=== PATIENT | male | born 1995 | race Two or more races ===

== ENCOUNTER 2025-03-15 17:07 | Emergency (ER) | payer MEDICAID, SELFPAY ==
[2025-03-15 17:20] VITALS: BP 144/83; PULSE 109; RESP 20; TEMP 39; O2SAT 95
--- NOTE | 2025-03-15 17:38 | XR_ITS ---
Examination: PA lateral chest 2 views TECHNIQUE: Upright PA and lateral chest 2 views Date and time: March 15, 2025, 1757 hours INDICATIONS: Coughing beginning 3 days ago. FINDINGS: Early pneumonia in the lingular segment left upper lobe Normal heart size Right lung is clear IMPRESSION: Early pneumonia in the lingular segment left upper lobe
--- NOTE | 2025-03-15 17:39 | EDRME_ITS ---
Rapid Medical Screening Exam RME Arrival date/time: 03/15/25 17:07 30-year-old male with no known medical history presents to the emergency room with a chief complaint of fever, right-sided flank pain, abdominal pain, cough x 2 days I have greeted and performed a focused initial assessment of this patient. A com prehensive ED assessment and evaluation of the patient, analysis of all test results, and completion of the medical decision making process will be conducted by additional ED providers. Chief Complaint: General Adult/Misc Complain Time Seen by Provider: 03/15/25 17:20 Vital signs: Vital Signs Temperature 102.2 F H 03/15/25 17:20 Pulse Rate 109 H 03/15/25 17:20 Respiratory Rate 20 03/15/25 17:20 Blood Pressure 144/83 H 03/15/25 17:20 Pulse Oximetry (%) 95 03/15/25 17:20 Oxygen Delivery Method Room Air 03/15/25 17:20 Vital signs reviewed by provider: Yes
--- NOTE | 2025-03-15 17:39 | XR_ITS ---
Examination: CT abdomen and pelvis without contrast. Coronal 3-D reconstructions. Sagittal 2-D reconstructions. Date and time of exam:March 15, 2025, 1754 hours INDICATIONS: Fever and left-sided flank pain and generalized abdominal pain beginning one week ago CTDI: vol (mGy): 8.57. DLP: (mGycm): 567. Technique: Axial images of the abdomen have been obtained, 3 mm slice thickness Intravenous contrast material has not been administered. Low dose protocols were performed. One or more of the following dose reduction techniques were used; automated exposure control, adjustment of the mA and/or KV according to patient size, use of iterative reconstruction technique. Findings: Diffuse fatty infiltration throughout the liver, hepatomegaly 19 cm No definite gallstones No splenic pancreatic or adrenal lesion No renal or ureteral calculi, no hydronephrosis Aorta normal size Appendix, coronal images 77 through 58 is fluid-filled and mildly thickened up to 6 mm, no definite periappendiceal inflammatory changes No pericecal inflammatory change 6 mm fat-containing umbilical hernia No bowel obstruction No diverticulitis Normal seminal vesicles No prostatomegaly No bladder calculi, bladder wall is not thickened Intact osseous structures IMPRESSION: No renal or ureteral calculi, no hydronephrosis No bladder calculi or cystitis pattern. The appendix is fluid-filled and mildly thickened up to 6 mm, no definite periappendiceal inflammatory change, no pericecal inflammatory change, the appearance should be clinically correlated
[2025-03-15] MEDS: ACETAMINOPHEN 500 MG TABLET 1000 MG PO (18:11)
[2025-03-15 18:34] LABS: COVID-19 Antigen (In-House) Negative (Negative)
[2025-03-15 18:42] LABS: Lactate (Lactic Acid) 1.0 mMol/L (0.4-2.0)
[2025-03-15 18:43] LABS: Basophils # (Auto) 0.0 Thou/mm3 (0.0-0.2); Basophils % (Auto) 0 % (0-2.5); Eosinophils # (Auto) 0.0 Thou/mm3 (0.0-0.5); Eosinophils % (Auto) 0 % (0-10); Hematocrit 43.7 % (41.0-53.0); Hemoglobin 15.5 g/dL (13.5-16.0); Immature Granulocytes Auto 0.04 Thou/mm3 (0.00-0.00); Lymphocytes # (Auto) 1.7 Thou/mm3 (1.0-4.8); Lymphocytes % (Auto) 17 % (10-50); Mean Corpuscular HGB Conc 35.5 g/dl (31.0-37.0); Mean Corpuscular Hemoglobin 30.6 pg (25.0-35.0); Mean Corpuscular Volume 86 fL (80-100); Monocytes # (Auto) 1.1 Thou/mm3 (0.0-0.8); Monocytes % (Auto) 11 % (0-12); Neutrophils # (Auto) 7.1 Thou/mm3 (1.8-7.7); Neutrophils % (Auto) 71 % (37-80); Nucleated Red Blood Cell # 0.00 Thou/mm3 (0.00-0.00); Nucleated Red Blood Cell % 0 /100 WBC (0); Platelet Count 199 Thou/mm3 (140-440); RDW Standard Deviation 42.1 fL (35.1-43.9); Red Blood Count 5.06 Miln/mm3 (4.50-5.90); White Blood Count 10.0 Thou/mm3 (3.8-10.6)
[2025-03-15 19:10] LABS: Alanine Aminotransferase 47 U/L (10-49); Albumin, Serum 4.5 gm/dL (3.5-5.0); Albumin/Globulin Ratio 1.5 (1.2-2.2); Alkaline Phosphatase 136 U/L (46-116); Anion Gap 8 (7-16); Aspartate Amino Transferase 31 U/L (0-34); BUN/Creatinine Ratio 8 Ratio (12-20); Bilirubin,Total 0.7 mg/dL (0.3-1.2); Blood Urea Nitrogen 9 mg/dL (9-23); Calcium 9.0 mg/dL (8.3-10.6); Calcium (Corrected) 9.0 mg/dL (8.5-10.1); Carbon Dioxide 25.2 mMol/L (20.0-31.0); Chloride 108 mMol/L (98-107); Creatinine (Component) 1.1 mg/dL (0.6-1.3); Estimated Creatinine Clearance 108.8 mL/min (>60); Globulin 3.1 gm/dL (2.3-3.5); Glucose 102 mg/dL (74-106); Lipase 30 U/L (12-53); Osmolality,Calculated 279 (275-295); Potassium 3.8 mMol/L (3.4-5.1); Procalcitonin 0.29 ng/ml (0.0-0.49); Sodium 141 mMol/L (136-145); Total Protein 7.6 gm/dL (5.7-8.2); eGFR > 60 See Note
[2025-03-15 19:23] VITALS: TEMP 37.4
[2025-03-15 19:24] VITALS: BP 124/83; PULSE 89; RESP 18; TEMP 37.4; O2SAT 97
[2025-03-15 19:51] LABS: Collection Type, Urine Clean Catch
[2025-03-15 20:17] LABS: Bacteria,Urine Rare; Bilirubin,Urine Negative (Negative); Blood,Urine 2+ (Negative); Clarity,Urine Clear (Clear/Hazy); Color,Urine Yellow (Lt Yel-Yel); Glucose, Urine Negative (Negative); Ketones,Urine Negative (Negative); Leukocyte Esterase,Urine Negative (Negative); Nitrite,Urine Negative (Negative); PH,Urine 5.5 (5.0-7.0); Protein,Urine Trace (Neg - Trace); RBC,Urine 2 /hpf (0-3); Specific Gravity,Urine 1.026 (1.001-1.035); Squamous Epithelial Cell,Urine < 1 /hpf (0-5); Urobilinogen,Urine Negative mg/dL (0.0-1.0); WBC,Urine 2 /hpf (0-5)
[2025-03-15 20:40] VITALS: BP 138/80; PULSE 85; RESP 18; TEMP 37.1; O2SAT 97
[2025-03-16 01:14] VITALS: BP 125/83; PULSE 68; RESP 16; TEMP 36.7; O2SAT 97
--- NOTE | 2025-03-16 03:17 | PC.NURSE ---
WE HAD DOWN TIME FROM [id number].
[2025-03-16 04:03] VITALS: BP 139/87; PULSE 85; RESP 17; TEMP 36.9; O2SAT 97
--- NOTE | 2025-03-16 05:02 | EDNOTE_ITS ---
ED General RME/HPI General Chief complaint: General Adult/Misc Complain Stated complaint: LOW O2 LEVEL (94%), SENT FROM [facility] Time Seen by Provider: 03/15/25 17:20 Source: patient Arrival date/time: 03/15/25 17:07 Mode of arrival: ambulatory Limitations: no limitations RME / HPI RME / HPI narrative: 03/15/25 17:07 30-year-old male with no known medical history presents to the emergency room with a chief complaint of fever, right-sided flank pain, abdominal pain, cough x 2 days I have greeted and performed a focused initial assessment of this patient. A comprehensive ED assessment and evaluation of the patient, analysis of all test results, and completion of the medical decision making process will be conducted by additional ED providers. 30-year-old male coming in with cough x 3 days. Nonproductive. Patient states that when he coughs he will get some right leg pain from the cough. The patient took Tylenol with some improvement in the pain. Pain is dull ache, no shortness of breath or chest pain. No diaphoresis. No swelling in his lower extremities. Patient states that he is not having abdominal pain. No diarrhea. No nausea vomiting. Subjective fever for the last 2 days. Patient has baseline cough but it has been worse no sick contacts. Patient is non-smoker. Patient had some previous amoxicillin that he started taking. He is now on day #1 with amoxicillin. Onset (ago): day(s) (3) Location: chest Radiation: non-radiation Severity: moderate Related Data Previous Rx's ?Medication ?Instructions ?Recorded acetaminophen 325 mg tablet 650 mg (2 x 325 mg) PO QID PRN 03/16/25 (Aminofen) fever 2 days #14 tabs amoxicillin 875 mg-potassium 1 tab PO BID 7 days #14 t abs 03/16/25 clavulanate 125 mg tablet Allergies Allergy/AdvReac Type Severity Reaction Status Date / Time No Known Allergies Allergy Verified 03/15/25 17:14 Review of Systems Respiratory Respiratory: Reports system reviewed and no additional complaints, except as documented Gastrointestinal Gastrointestinal: Reports system reviewed and no additional complaints, except as documented Neurologic Neurologic: Reports system reviewed and no additional complaints, except as documented ED Exam General Limitations: Present no limitations General appearance: Present alert and in no apparent distress Eye Eye exam: Present PERRL, EOMI and scleral icterus ENT ENT exam: Present normal exam, normal oropharynx and mucous membranes moist Neck Neck exam: Present normal inspection, full ROM, trachea midline, tenderness and meningismus Chest Chest inspection: Present normal inspection Respiratory Respiratory exam: Present normal lung sounds bilaterally Cardiovascular Cardiovascular exam: Present regular rate Abdominal Exam Abdominal exam: Present soft and normal bowel sounds; Absent distention, tenderness, guarding, rebound, rigidity or organomegaly Abdominal tenderness: Absent RUQ, RLQ, LUQ, LLQ, epigastrium or suprapubic Back Exam Back exam: Present normal inspection; Absent CVA tenderness (R) or CVA tenderness (L) Neurological Exam Neurological exam: Present alert, oriented X3 and CN II-XII intact Psychiatric Psychiatric exam: Present normal mood Skin Skin exam: Present warm, dry, intact, normal color and rash Course Quality Measures none Orders Category Date Time Status Bedside Influenza A&B Antigen Test NOW Care 03/15/25 17:[address] abdomen pelvis wo con Stat Exams 03/15/25 17:39 Completed XR chest 2V Stat Exams 03/15/25 17:38 Completed Blood Culture (Lab) Stat Lab 03/15/25 18:30 Received CBC Stat Lab 03/15/25 18:25 Completed CMP [Comprehensive Metabolic Panel] Stat Lab 03/15/25 18:25 Completed COVID-19 Antigen (In-House) Stat Lab 03/15/25 18:06 Completed Lactate (Lactic Acid) Stat Lab 03/15/25 18:25 Completed Lipase Stat Lab 03/15/25 18:25 Completed Procalcitonin Stat Lab 03/15/25 18:25 Completed UA [Urinalysis] Stat Lab 03/15/25 18:40 Completed Urine Culture Stat Lab 03/15/25 18:40 Received Acetaminophen Tab [Tylenol ES Tab] Med 03/15/25 17:39 Discontinued 1,000 mg PO X1 ONE Reevaluation(s) Reevaluation #1: No rebound. Nontender. No CVA tenderness. No guarding. Time: 05:29 Vital Signs Vital signs: Vital Signs Temperature 102.2 F H 03/15/25 17:20 Pulse Rate 109 H 03/15/25 17:20 Respiratory Rate 20 03/15/25 17:20 Blood Pressure 144/83 H 03/15/25 17:20 Pulse Oximetry (%) 95 03/15/25 17:20 Oxygen Delivery Method Room Air 03/15/25 17:20 Discharge Plan Plan Patient Disposition: HOME (Self Care) Patient condition on transfer: Stable Prescriptions/Referrals Prescriptions/Med Rec: New amoxicillin-pot clavulanate 875-125 mg tablet 1 tab PO BID 7 Days Qty: 14 0RF acetaminophen [Aminofen] 325 mg tablet 650 mg PO QID PRN (Reason: fever) 2 Days Qty: 14 0RF Referrals: Kan Robles MD [Primary Care Provider] - In 1 week Lillie Ocasio MD [Emergency Provider] - 03/16/25 (6pm) Problem List Clinical Impression: PNA (pneumonia) Patient/Caregiver Discharge Instructions Education Materials: ED Pneumonia (Adult) Additional Instructions: Stay hydrated with Pedialyte and Gatorade. Please take the antibiotics as prescribed. Return to the emergency department tonight at 6 PM for reevaluation with Dr. Lincoln/Gurdeep. Return sooner than your appointment tonight if you are having fever, any abdominal pain, you are feeling worse, or any other concerns. Today your CAT scan shows that you have a slightly dilated appendix however since you are not having abdominal pain and your chest x-ray shows pneumonia. We will treat you for pneumonia. However I want to check you again tonight in 12 hours. No work today. Take the antibiotics as prescribed. Print Language: Italian Stand Alone Forms: [facility] Award Info., Work/School Release, Patient Portal Info Letter MDM Clinical Information Provided by patient Medical Records Reviewed None Meds/Rx Considered, not Ordered None Imaging Imaging interpretation: none Medication Administration(s) Medication Administration History Discontinued Medications Acetaminophen (Acetaminophen 500 Mg Tablet) 1,000 mg PO X1 ONE Stop: 03/15/25 17:40 Last Admin: 03/15/25 18:11 Dose: 1,000 mg Documented By: BOBBI as above Diagnosis Differential diagnosis: PNA, abd pain, Dispositon Disposition: Discharge Home
[2025-03-16 05:26] VITALS: RESP 18
== END 2025-03-16 05:27 | disposition home or self-care (01) ==
PROVIDERS: Nurse Practitioner Family; Emergency Provider Emergency Medicine; PCP Family Medicine
DX: J18.9 Pneumonia, unspecified organism (principal)
CPT/HCPCS: 36415; 71046; 74176; 80053; 81001; 83605; 83690; 84145; 85025; 87040; 87086; 87400; 87811; 99284; A9270

== ENCOUNTER 2025-03-16 17:58 | Emergency (ER) | payer MEDICAID, SELFPAY ==
[2025-03-16 18:50] VITALS: BP 123/78; PULSE 85; RESP 18; TEMP 37.6; O2SAT 95; BMI 29.2
--- NOTE | 2025-03-16 18:54 | PD.EDRECHK ---
ED Recheck Abnl Lab Rx-RME/HPI General Chief Complaint: Recheck/Abnormal Lab/Rx Stated Complaint: RETURNING FOR RE-EVAL Time Seen by Provider: 03/16/25 18:53 Source: patient and RN notes reviewed Arrival date/time: 03/16/25 17:58 Mode of arrival: ambulatory Limitations: no limitations RME / HPI RME / HPI narrative: Dr. Ocasio?s Main ED Evaluation: 30-year-old male returns to the Emergency Department for re-evaluation. He reports no abdominal pain or fever today and states he has been taking his prescribed antibiotics as directed without any issues. He denies any new or worsening symptoms and is here specifically for re-check. Related Data Previous Rx's ?Medication ?Instructions ?Recorded acetaminophen 325 mg tablet 650 mg (2 x 325 mg) PO QID PRN 03/16/25 (Aminofen) fever 2 days #14 tabs amoxicillin 875 mg-potassium 1 tab PO BID 7 days #14 tabs 03/16/25 clavulanate 125 mg tablet Allergies Allergy/AdvReac Type Severity Reaction Status Date / Time No Known Allergies Allergy Verified 03/15/25 17:14 Review of Systems Review of Systems Systems Reviewed: All systems reviewed, normal except as documented Past Medical History Social History SMOKING STATUS: Never smoker ED Exam General Limitations: Present no limitations General appearance: Present alert and in no apparent distress Head Head exam: Present atraumatic Eye Eye exam: Present normal appearance, PERRL and EOMI ENT ENT exam: Present normal exam, normal oropharynx and mucous membranes moist Neck Neck exam: Present normal inspection, full ROM and trachea midline Chest Chest inspection: Present normal inspection and symmetric chest wall rise Respiratory Respiratory exam: Present normal lung sounds bilaterally Cardiovascular Cardiovascular exam: Present regular rate, normal rhythm and normal heart sounds Abdominal Exam Abdominal exam: Present soft and normal bowel sounds Extremities Exam Extremities exam: Present normal inspection and full ROM Back Exam Back exam: Present normal inspection and full ROM Neurological Exam Neurological exam: Present alert, oriented X3 and CN II-XII intact Psychiatric Psychiatric exam: Present normal affect and normal mood Skin Skin exam: Present warm, dry, intact and normal color Course Quality Measures none Vital Signs Vital signs: Vital Signs Temperature 99.6 F 03/16/25 18:50 Pulse Rate 85 03/16/25 18:50 Respiratory Rate 18 03/16/25 18:50 Blood Pressure 123/78 03/16/25 18:50 Pulse Oximetry (%) 95 03/16/25 18:50 Oxygen Delivery Method Room Air 03/16/25 18:50 Recheck / Abnormal Lab / Rx MDM Narrative MDM Narrative:: Patient was reassessed and remains in no acute distress. Vital signs were reviewed, notable for a temperature of 99.6?F, with otherwise stable blood pressure and heart rate. Abdominal exam was benign, with no rebound tenderness, guarding, or focal tenderness. Lungs were auscultated, with no signs of respiratory distress at this time. Given the patient?s clinical stability, he is deemed appropriate for discharge. He has been instructed to continue his prescribed course of antibiotics and to follow up with his primary care provider or the [facility] within one week for continued monitoring and management of his pneumonia. The patient was counseled to return to the Emergency Department for any worsening symptoms. Patient verbalizes understanding of discharge instructions and agrees with the plan of care. DISPOSITION: Emergency Department nursing documentation was reviewed including triage complaint, associated symptoms, administration of medications, response to therapy and vital signs. Given the history, physical exam, and review of any performed laboratory and imaging studies the patient is being discharged in stable condition. I advised the patient to followup with their outpatient provider for further diagnostic testing and treatments as needed. Strict return precautions were given. Scribe Attestation: I, Barbara Curtis, am scribing for and in the presence of Dr. Ocasio. Provider Notation: Although this document has been carefully reviewed, there may still be some phonetic and other typographical errors. These errors are purely grammatical due to imperfections in the software program and should not be construed in any way to compromise the substance of the patient's medical care during this visit. Patient data External records reviewed:: [facility] previous records Clinical information provided by:: patient Social determinants that could affect healthcare access:: none Patient has the following chronic illnesses:: See PMH How is presenting disease/condition affected by chronic disease/condition?: uneffected by Evaluation data The following diagnostics were reviewed and interpreted by me:: other (specify) (n/a) Lab and/or radiology exams considered but not ordered:: n/a Interpretation Summary: n/a Medications / Prescriptions Medications or Prescriptions considered but not ordered:: n/a Medication administrations:: n/a Consultations Consultation(s) initiated? (list below): No Diagnosis Recheck Differential Diagnosis: other Most likely diagnosis given after review of the tests above:: PNA (pneumonia) Admission Indicated Admission indicated?: not indicated Admission Request Was there a request for admission?: No Disposition Plan Disposition Plan: Discharge Discharge Attestation Discharge Attestation: The patient and all family members were given an opportunity to ask questions and understood the discharge instructions. Discharge instructions specifically effects, indications for sooner follow up or return to the emergency department, and the expected course of current diagnosis. Patient condition: Stable Discharge Plan Plan Patient Disposition: HOME (Self Care) Prescriptions/Referrals Prescriptions/Med Rec: No Action amoxicillin-pot clavulanate 875-125 mg tablet 1 tab PO BID 7 Days Qty: 14 0RF acetaminophen [Aminofen] 325 mg tablet 650 mg PO QID PRN (Reason: fever) 2 Days Qty: 14 0RF Problem List Clinical Impression: PNA (pneumonia) Patient/Caregiver Discharge Instructions Other Activity Instructions:: Please continue to take antibiotic augmentin prescribed yesterday for an aditional 6 days Should any symptoms recur or worsen patient is instructed to return to the ED. Follow up with the [facility]. Print Language: Gambian Stand Alone Forms: Bailey Award Info., Patient Portal Info Letter
== END 2025-03-16 19:08 | disposition home or self-care (01) ==
LOC: SERX 19:13
PROVIDERS: Emergency Provider Emergency Medicine
DX: J18.9 Pneumonia, unspecified organism (principal)
CPT/HCPCS: 99281